=== PATIENT | female | born 1995 | race Caucasian/White ===

== ENCOUNTER → 2022-05-11 17:02 | Outpatient (CLI) | payer OTHER, SELFPAY ==
--- NOTE | 2022-05-11 17:06 | DI.US.S_ITS ---
PROCEDURE: US OB <= 14 WEEKS FETUS INDICATIONS: DATING AND VIABILITY OUTSIDE/PRIOR DATING DATA: Last menstrual period (LMP): 03/11/2022. LMP-based estimated date of delivery (KAILASH): 12/16/2022. First dating scan (date and location): 05/11/2022. Estimated date of delivery (KAILASH) from first dating scan: < 12/29/2022. TECHNIQUE: Real-time scanning was performed of the fetus and maternal pelvic organs, with image documentation. Endovaginal scanning was also performed to better visualize the fetus and maternal ovaries. COMPARISON: None. FINDINGS: Embryo: There is a single intrauterine with a gestational sac, yolk sac, and pole demonstrated. The crown-rump length measures up to 0.8 cm corresponding to a calculated gestational age of 6 weeks 5 days and estimated delivery date of 12/29/2022. There is heart motion with a rate of 122 beats per minute. Maternal organs: The ovaries appear within normal size limits. No adnexal masses identified. IMPRESSION: 1. Single living intrauterine with calculated gestational age of 6 weeks 5 days corresponding to an estimated delivery date of 12/29/2022. We strive to produce accurate, complete, and clear reports of imaging services. To assist us in improving patient care, this report was composed using standard report templates and voice recognition software. Therefore, it may contain abnormal punctuation, insertions and/or omissions. Occasional wrong-word or sound-alike substitutions may occur. Though we review the report and make efforts to correct it, we do recommend that the report be read carefully in proper context to recognize any text inaccuracies. Dictated by: Tong Granados M.D. on 05/11/2022 at 20:47 Approved by: Tong Granados M.D. on 05/11/2022 at 20:52
== END ==
PROVIDERS: Family Provider Family Medicine; PCP Family Medicine; Referring Provider Family Medicine; Visit Provider Family Medicine
DX: Z36.87 Encounter for antenatal screening for uncertain dates (principal); Z3A.01 Less than 8 weeks gestation of pregnancy
CPT/HCPCS: 76801

== ENCOUNTER → 2022-06-19 15:28 | Outpatient (CLI) | payer OTHER, SELFPAY ==
[2022-06-19 17:03] LABS: Specimen Label NATERA
[2022-06-19 17:40] LABS: Add Manual Diff / Slide Review NO; Basophils Absolute Auto 0 /uL (0-100); Basophils Percent Auto 0.3 % (0-2); Eosinophils Absolute Auto 200 /uL (0-450); Hematocrit 36.9 % (36-46); Hemoglobin 12.8 g/dL (12.0-16.0); Lymphocytes Absolute Auto 2200 /uL (1100-4500); Lymphocytes Percent Auto 20.6 % (25-40); Mean Corpuscular HGB Conc 34.6 % (30-36); Mean Corpuscular Hemoglobin 32.1 PG (26-34); Mean Corpuscular Volume 92.6 fL (80-100); Monocytes Absolute Auto 400 /uL (0-900); Monocytes Percent Auto 3.7 % (3-14); Neutrophils Absolute Auto 8000 /uL (1500-7000); Neutrophils Percent Auto 73.4 % (50-75); Platelet Count 188 X10^3/uL (150-400); Red Blood Cell Count 3.99 X10^6/uL (4.0-5.2); Red Cell Distribution Width 12.8 % (11.6-14.8); White Blood Cell Count 10.9 X10^3/uL (4.5-11.0)
[2022-06-21 04:09] LABS: RPR Screen Non Reactive (Non Reactive)
[2022-06-21 11:27] LABS: Varicella IgG Antibody 193 index (Immune >165)
[2022-06-21 16:23] LABS: Hepatitis B Surface Antigen NEGATIVE s/c (NEGATIVE); Rubella Antibody IgG 42.4 IU/mL (>15)
[2022-06-21 16:41] LABS: HIV 1 & 2 Ab/Ag 4th Gen Combo NEGATIVE (NEGATIVE); Hep C Virus Ab w/Reflex Quant NEGATIVE s/c (NEGATIVE)
== END ==
PROVIDERS: Family Provider Family Medicine; PCP Family Medicine; Referring Provider Obstetrics & Gynecology; Visit Provider Obstetrics & Gynecology
DX: Z34.81 Encounter for supervision of other normal pregnancy, first trimester (principal)
CPT/HCPCS: 36415; 80055; 86787; 86803; 86850; 86900; 86901; 87086; 87389

== ENCOUNTER → 2022-07-16 11:33 | Outpatient (CLI) | payer OTHER, SELFPAY ==
[2022-07-19 19:07] LABS: AFP Value 47.3 ng/mL (.); Gest Age on Col Date 16.1 weeks (.); Insulin Dep Diabetes No (.); OSBR Risk 1IN 3704 (.); Results Report (.); Test Results *Screen Negative* (.)
== END ==
PROVIDERS: Family Provider Family Medicine; PCP Family Medicine; Referring Provider Physician Assistant Medical; Visit Provider Physician Assistant Medical
DX: Z34.02 Encounter for supervision of normal first pregnancy, second trimester (principal); Z3A.16 16 weeks gestation of pregnancy
CPT/HCPCS: 36415; 82105

== ENCOUNTER → 2022-08-15 14:16 | Outpatient (CLI) | payer OTHER, SELFPAY ==
--- NOTE | 2022-08-15 14:17 | DI.US.S_ITS ---
PROCEDURE: US OB >= 14 WEEKS FETUS INDICATIONS: anatomy scan OUTSIDE/PRIOR DATING DATA: Last menstrual period (LMP): 03/11/2022. LMP-based estimated date of delivery (KAILASH): 12/16/2022. First dating scan (date and location): 05/11/2022. Estimated date of delivery (KAILASH) from first dating scan: 12/29/2022. TECHNIQUE: Real-time scanning was performed of the fetus, with image documentation and biometric measurements. Endovaginal scanning: Not performed COMPARISON: [facility], OB <= 14 WEEKS FETUS, 05/11/2022, 17:33. [facility], , US OB <= 14 WEEKS FETUS, 06/19/2022, 12:23. FINDINGS: General: A single living intrauterine gestation is present. Presentation: Cephalic. Placenta: Placental position is posterior , without previa. Amniotic fluid index: 14.4 cm, normal range is 5-24 cm. Single deepest vertical pocket is 4.8 cm. heart rate: 133 beats per minute. Maternal cervical canal: 5.4 cm long. Normal lower limit is 2.5 cm. biometrics: Biparietal diameter: 4.6 cm 20 weeks 0 days Head circumference: 17.2 cm 19 weeks 6 days Abdominal circumference: 14.5 cm 19 weeks 6 days Femur length: 3.1 cm 19 weeks 4 days estimated gestational age: 20 weeks 4 days Composite gestational age from present scan: 19 weeks 6 days Estimated weight and percentile: 311 g, 11th percentile Anatomic survey: Neuro: Ventricles are non-dilated at less than 10 mm. Cisterna magna is normal at 3-11 mm. Cerebellum is normal in size and morphology. Nuchal skin fold: No thickening identified Face: Nose and lips, facial profile are normal. Spine: No evidence for spina bifida. Heart: 4-chambered heart is present, with normal ventricular outflow tracts. Diaphragm: Diaphragm is intact. Stomach: Left-sided stomach is present. Kidneys: No hydronephrosis. Normal is less than 5 mm in 2nd trimester, less than 7 mm in 3rd trimester. Cord: 3-vessel cord has orthotopic insertion. Bladder: Normal in size. Extremities: All 4 extremities identified. IMPRESSION: 1. Single living intrauterine . 2. Estimated weight at the 11th percentile. 3. Normal 2nd trimester anatomy survey. No anatomic anomalies detected at this time. We strive to produce accurate, complete, and clear reports of imaging services. To assist us in improving patient care, this report was composed using standard report templates and voice recognition software. Therefore, it may contain abnormal punctuation, insertions and/or omissions. Occasional wrong-word or sound-alike substitutions may occur. Though we review the report and make efforts to correct it, we do recommend that the report be read carefully in proper context to recognize any text inaccuracies. Dictated by: Froylan Rahman M.D. on 08/15/2022 at 16:30 Approved by: Froylan Rahman M.D. on 08/15/2022 at 16:39
== END ==
PROVIDERS: Family Provider Family Medicine; PCP Family Medicine; Referring Provider Obstetrics & Gynecology; Visit Provider Obstetrics & Gynecology
DX: Z34.02 Encounter for supervision of normal first pregnancy, second trimester (principal); Z3A.19 19 weeks gestation of pregnancy
CPT/HCPCS: 76811

== ENCOUNTER → 2022-09-27 11:10 | Outpatient (CLI) | payer OTHER, SELFPAY ==
[2022-09-27 12:34] LABS: Hematocrit 35.2 % (36-46); Hemoglobin 12.3 g/dL (12.0-16.0)
[2022-09-27 12:46] LABS: GTT (PREG) 1 Hour PP 50gm Dose 106 mg/dL (76-139)
== END ==
PROVIDERS: Family Provider Family Medicine; PCP Family Medicine; Referring Provider Obstetrics & Gynecology; Visit Provider Obstetrics & Gynecology
DX: Z34.02 Encounter for supervision of normal first pregnancy, second trimester (principal); Z3A.26 26 weeks gestation of pregnancy
CPT/HCPCS: 36415; 82950; 85014; 85018

== ENCOUNTER 2022-12-01 13:01 | Inpatient (IN) | payer OTHER, SELFPAY ==
[2022-12-01 14:04] LABS: Add Manual Diff / Slide Review NO; Basophils Absolute Auto 0 /uL (0-100); Eosinophils Absolute Auto 200 /uL (0-450); Eosinophils Percent Auto 1.1 % (2-4); Hemoglobin 12.9 g/dL (12.0-16.0); Lymphocytes Absolute Auto 1300 /uL (1100-4500); Lymphocytes Percent Auto 7.7 % (25-40); Mean Corpuscular HGB Conc 34.8 % (30-36); Mean Corpuscular Hemoglobin 32.8 PG (26-34); Mean Corpuscular Volume 94.2 fL (80-100); Monocytes Absolute Auto 700 /uL (0-900); Neutrophils Absolute Auto 15300 /uL (1500-7000); Neutrophils Percent Auto 87.2 % (50-75); Platelet Count 180 X10^3/uL (150-400); Red Blood Cell Count 3.93 X10^6/uL (4.0-5.2); Red Cell Distribution Width 13.3 % (11.6-14.8); White Blood Cell Count 17.6 X10^3/uL (4.5-11.0)
[2022-12-01] MEDS: ONDANSETRON 4 MG/2 ML INJ IV (14:31)
[2022-12-01] MEDS: LACTATED RINGERS 1,000 ML 100 ML IV (15:00)
[2022-12-01 15:03] LABS: Strep Grp B PCR NEG for Grp B Strep
--- NOTE | 2022-12-01 17:18 | PM.OBHP.IH.1 ---
OB HPI Date/Time Date of admission: 12/02/22 Date Patient Seen: 12/02/22 Time Patient Seen: 15:20 History of Present Condition Chief complaint: NST KAILASH Calculator Estimated Delivery Date Method Current WG Current Estimate 12/30/22 Ultrasound #1 35w 6d Other Estimates 12/16/22 LMP (Certain) 37w 6d 12/31/22 Ultrasound #2 35w 5d Estimated Gestational Age (weeks): 35+6 : 1 Para: 0 care: good care, initiated at week # (12), number of visits (7) and pounds weight gain (65) Dating criteria OB: LMP confirmed by 1st trimester US Ultrasounds: normal 1st trimester US and normal mid trimester US Obstetrical complications: none Medical complications OB: none Preadmission Labs Last OB Lab Results: Blood Type A Positive 12/01/22 13:35 Antibody Screen Negative 12/01/22 13:35 Hematocrit 37.0 % (36-46) 12/01/22 13:35 Hemoglobin 12.9 g/dL (12.0-16.0) 12/01/22 13:35 Hepatitis B Surface Antigen Negative s/c (NEGATIVE) 06/19/22 16:21 Hepatitis C Antibody Negative s/c (NEGATIVE) 06/19/22 16:21 Rubella Antibody 42.4 IU/mL (>15) 06/19/22 16:21 Varicella-Zoster IgG Antibody 193 index (Immune >165) 06/19/22 16:21 Glucose 1 Hour 106 mg/dL (76-139) 09/27/22 12:18 Group B Streptococcus (PCR) Neg for grp b strep 12/01/22 13:30 -: Chlamydia screen: negative, Gonorrhea screen: negative and Urine: negative -: PAP smear: Normal Genetic Screens: Cell-free DNA: Normal (normal male) and Alpha-fetoprotein: Normal External Labs -: Urine: negative Evaluation Evaluation Baseline heart rate: 120 Variability: Moderate (11-25) monitor accelerations: Present Monitor Decelerations: Early Contraction Frequency (minutes): 3 Uterine Contraction Intensity: Strong/Firm Status: Category l Dilation (cm): 10 Effacement (%): 100 station: +2 Position of cervix: anterior [facility] Medical History (Updated 11/14/22 @ 14:54 by Cami Arriola DO) Acne Allergies Depression (~2014) Irregular menstrual cycle (~2014) Rosacea 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 Thoracic region somatic dysfunction Surgical History History of third molar tooth extraction Family History (Updated 06/20/22 @ 21:09 by Gabi Goyal) Granddaughter Diabetes mellitus Father Family estrangement Family/Other Diabetes mellitus Grandfather Hyperlipidemia Hypertension Mother History of cholecystectomy Family/Other Sepsis Heart valve disease Grandmother Diabetes mellitus Social History marital status: household members: spouse lives independently: Yes caregiver/support person: No housing: house pets and animals: Yes (2 dogs) education level: college occupational status: employed current occupational exposures/hazards: No special niko needs: No travel history: over 6 months ago seatbelt use: always water heater temp set < 120 deg: Yes working smoke detector in home: Yes fire extinguisher in home: Yes carbon monox detector in home: Yes firearms in home: Yes firearms unloaded and locked: Yes do you feel safe at home: Yes Smoking Status: Never smoker second hand exposure: No alcohol intake: never substance use type: does not use during the past year weight has: increased > 10 lbs well-balanced diet: daily or most days daily servings fruits/ve or more times/day caffeine: Yes (very little since learning of , aware of 200mg limit) Type(s) of exercise: walking Meds Home Medications and Allergies Home Medications Medication Instructions Recorded Confirmed Type permethrin 5 % topical cream 1 applic topical ONCE rash #60 02/16/21 11/27/22 Rx grams choline 250 mg tablet mg PO 05/31/22 11/27/22 History docosahexaenoic acid 200 mg mg PO 05/31/22 11/27/22 History capsule ( DHA) prenat.vits,cholo,[id number] 1 tab PO DAILY 05/31/22 11/27/22 History Double Electric Breast Pump #1 ea 11/27/22 11/27/22 Rx Allergies Allergy/AdvReac Type Severity Reaction Status Date / Time apple Allergy Severe Swelling Verified 11/27/22 10:29 of Lip/Tongue/Throat wheat AdvReac Mild Verified 11/27/22 10:29 dairy AdvReac Mild Uncoded 11/27/22 10:29 OB Exam Narrative Exam Narrative: Generally: Patient working through contractions, no acute distress Fundal height: 37 cm Estimated weight: 6 lb Extremities: Trace edema Objective Labs 12/01/22 13:35 Labs: Laboratory Results - last 24 hr 12/01/22 12/01/22 12/01/22 13:30 13:35 13:35 WBC 17.6 H RBC 3.93 L Hgb 12.9 Hct 37.0 MCV 94.2 MCH 32.8 MCHC 34.8 RDW 13.3 Plt Count 180 Neut % (Auto) 87.2 H Lymph % (Auto) 7.7 L [place] % (Auto) 4.0 Eos % (Auto) 1.1 L Baso % (Auto) 0.0 Neut # (Auto) 69024 H Lymph # (Auto) 1300 [place] # (Auto) 700 Eos # (Auto) 200 Baso # (Auto) 0 Group B Strep (PCR) Neg for grp b strep Blood Type A Positive Antibody Screen Negative Assessment and Plan Assessment and Plan Assessment and Plan narrative: Assessment: 27-year-old 1 para 0 at 35-,6/7 weeks gestation in active labor, entering second stage GBS negative Plan: Expectant management to spontaneous vaginal delivery Time Spent with Patient Total time spent with greater than 50% in coordination of care (as documented) at patient's floor/unit and/or counseling patient:: Greater than 35 minutes
--- NOTE | 2022-12-01 17:26 | PM.OBPRVD ---
Events: Labor < 37 wks Labor & Delivery Delivery date: 12/01/22 Cervical ripening method: none Induction method: none Delivery monitor: external FHT and external uterine Route of delivery: Episiotomy description: None L&D Laceration Description: Perineal - 2nd Degree and Vaginal - 2nd Degree Quantitative Blood Loss: 100 Anesthesia Type: Local (for repair) and None Complications: None Narrative: Patient complete and pushed for 25 minutes. At 3:49 p.m., a live male infant delivered spontaneously in the THOMAS presentation, over an intact perineum. No nuchal cord. The remainder of the body delivered without difficulty and was placed on mom's abdomen. There was a short umbilical cord. The cord was double clamped and cut after it stopped pulsing. Cord bloods were obtained. Pitocin was given in the IV fluids. The placenta delivered intact with a three-vessel cord at 3:59 p.m.. Fundus was massaged to firm. The perineum and vagina were inspected and there was a second-degree vaginal/perineal laceration. This was repaired in the usual fashion with 2-0 vicryl and 2-0 chromic. Hemostasis was achieved. . Local for repair. Mom and infant stable to recovery. Baby 1: gender: Male Presentation: vertex Position: Left Occiput Anterior Placenta delivery description: Spontaneous Cord Vessel Description: 3 Vessels and Clamped/Cut (After cord stopped pulsing) score (1 min): 9 score (5 min): 9 weight: 5 lb 15 oz Plan for aftercare: Routine care
[2022-12-01] MEDS: ACETAMINOPHEN 325 MG TABLET 650 MG PO (20:00)
[2022-12-01] MEDS: IBUPROFEN 600 MG TABLET PO (22:13)
[2022-12-02] MEDS: ACETAMINOPHEN 325 MG TABLET 650 MG PO ×3 (02:58→19:51)
[2022-12-02 06:31] LABS: Hematocrit 31.4 % (36-46)
[2022-12-02] MEDS: IBUPROFEN 600 MG TABLET PO ×3 (06:57→19:50)
[2022-12-02] MEDS: DOCUSATE 100 MG CAPSULE PO (09:48)
[2022-12-02] MEDS: PRENATAL VIT,CALC/IRON/FOLIC 1 TABLET 1 TAB PO (09:48)
[2022-12-03] MEDS: ACETAMINOPHEN 325 MG TABLET 650 MG PO ×3 (01:35→14:53)
[2022-12-03] MEDS: IBUPROFEN 600 MG TABLET PO ×3 (01:42→14:52)
--- NOTE | 2022-12-03 07:20 | P.PNOB_ITS ---
Subjective - OB Subjective Patient comments: no complaints [place] baby status: doing well feeding status: breast and bottle feeding Date Patient Seen: 12/02/22 Time Patient Seen: 12:00 Interval history: day # 1 status post spontaneous vaginal delivery at 35-,6/7 weeks gestation. Breast and SNS feeding. Bleeding is tapering. Cramping occasionally. Exam Narrative Exam Narrative: Generally: Patient is sitting up in bed, no acute distress Fundus: Firm at U -2 Extremities: Trace edema, negative Homans Objective Labs 12/02/22 06:22 Assessment & Plan Plan day: 1 plan OB: routine care Comments: consultation tomorrow morning Anticipate discharge December 03, 2022 Time Spent With Patient Time: Total time spent is greater than 50% in coordination of care (as documented) at patient's floor/unit and/or counseling patient: Time with patient: 15-24 minutes
[2022-12-03] MEDS: PRENATAL VIT,CALC/IRON/FOLIC 1 TABLET 1 TAB PO (08:19)
[2022-12-03] MEDS: DOCUSATE 100 MG CAPSULE PO (08:19)
[2022-12-03 16:22] VITALS: BP 125/73; PULSE 70; RESP 14; TEMP 36.7
--- NOTE | 2022-12-09 16:38 | PM.OBDS.1 ---
Discharge Providers Provider Date of admission: 12/01/22 13:01 Discharge Date: 12/03/22 Primary care physician: Cami Arriola DO Consults: 12/01/22 13:33 Consult to Anesthesiology Urgent Comment: Consulting Provider: Ninoska Simmons Reason for consultation: Epidural 12/02/22 17:00 Consult to Director Of Professional Services Routine Comment: Discharge provider: Ninoska Simmons MD Summary Hospital Course Date Patient Seen: 12/03/22 Time Patient Seen: 09:30 Diagnoses: 35-,6/7 weeks gestation labor delivery Spontaneous vaginal delivery Hospital Course: Patient is a 27-year-old 1 para 1 who presented on December 01, 2022 in labor at 35-,6/7 weeks gestation. She progressed quickly in active labor and had a spontaneous vaginal delivery of a male weighing 5 lb 15 oz. Apgars were 9 at 1 minute and 9 at 5 minutes. Her course was unremarkable. She was discharged home on December 03, 2022. Baby was feeding well. She had received consultation. Her bleeding was tapering. Peripartum Data Infant Delivery Method: Natural Vaginal Laceration Description: Perineal - 2nd Degree and Vaginal - 2nd Degree Episiotomy description: None Procedures: Spontaneous vaginal delivery Vaginal/perineal second-degree laceration repair complications: none 1: Gender: Male Status at Discharge Cognitive/behavioral status at discharge: oriented Functional status at discharge: independent ambulation Overall status at discharge: patient is progressing back to baseline Time Spent with Patient Time attestation: Total time spent providing and/or coordinating discharge services: Time spent: Less than 30 minutes Objective Labs 12/02/22 06:22 Exam Narrative Exam Narrative: Generally: Patient is sitting up in bed, holding infant, no acute distress Fundus: Firm at U -1 Extremities: Trace edema, negative Homans Discharge Plan Discharge Plan Patient Disposition: Home Provider Discharge Comment: Call with fever, chills, or bleeding vaginally more than a pad in an hour Ibuprofen 600 mg every 6 hours as needed for cramping Tylenol 650 mg every 6 hours as needed Push oral fluids Elevate legs Discharge orders & Medications Prescriptions: Continued prenat.vits,cholo,[id number] Tablet 1 tab PO DAILY DHA 200 mg capsule See Rx Instructions .ROUTE .COMPLEX Rx Instructions: per Md order choline 250 mg tablet 250 mg PO Rx Instructions: Per MD order Discontinued permethrin 5 % cream 1 applic topical ONCE Qty: 60 0RF Rx Instructions: leave on for 8 to14 hrs before washing off No Action (DME) Double Electric Breast Pump See Rx Instructions .Route .MEDSUPPLY Qty: 1 0RF Rx Instructions: Pump and supplies Follow up/Referrals: Ninoska Simmons MD [Physician] - 01/14/23 3:15 pm Diet/Activity/Treatments Diet: Regular Activity: Nothing in the vagina for 6 weeks Skin/Wound/Dressing Care Report to your healthcare provider any signs of infection, such as:: chills, fever, increased pain and unusual drainage Visit Report/Discharge Packet Instructions: DI for Labor and Delivery, Vaginal Stand Alone Forms: Discharge: Care, Patient Portal/API, Stroke Signs & Symptoms Discharge Data Primary Care Provider: Cami Arriola Discharges patient from system. Discharge Date/Time: 12/03/22 18:40
== END 2022-12-03 18:40 | disposition home or self-care (01) | DRG 807 ==
PROVIDERS: Admitting Provider Obstetrics & Gynecology; Family Provider Family Medicine; PCP Family Medicine; Referring Provider Obstetrics & Gynecology; Visit Provider Obstetrics & Gynecology
DX: O60.14X0 Preterm labor third trimester with preterm delivery third trimester, not applicable or unspecified (principal); Z37.0 Single live birth; Z3A.35 35 weeks gestation of pregnancy; O70.1 Second degree perineal laceration during delivery
CPT/HCPCS: 36415; 59025; 59050; 59400; 84112; 85014; 85018; 85025; 86850; 86900; 86901; 87081; 87653; G0379; J2405

== ENCOUNTER → 2023-06-14 11:24 | Outpatient (CLI) | payer OTHER, SELFPAY ==
--- NOTE | 2023-06-14 11:57 | DI.RAD.S_ITS ---
PROCEDURE: XR FOOT RT 2V INDICATIONS: bilateral heel pain TECHNIQUE: 2 views of the foot were acquired. COMPARISON: None. FINDINGS: Bones: No fractures or dislocations. No suspicious bony lesions. Plantar calcaneal enthesophyte. Soft tissues: No tibiotalar joint effusion. Achilles tendon appears normal. IMPRESSION: Mild calcaneal enthesopathy; otherwise no definite radiographic abnormality. If pain persists with conservative management, consider repeat plain films or cross sectional imaging such as CT or MRI for further assessment. Dictated by: Azael Key [facility] Interpreted: Jackson Ellis MD on 06/14/2023 at 14:07 Transcribed by: JOANNE on 06/14/2023 at 14:19 Approved by: Jackson Ellis M.D. on 06/17/2023 at 10:12
--- NOTE | 2023-06-14 11:57 | DI.RAD.S_ITS ---
PROCEDURE: XR FOOT LT 2V INDICATIONS: bilateral heel pain TECHNIQUE: 2 views of the foot were acquired. COMPARISON: Located [facility], CR, XR FOOT RT 2V, 06/14/2023, 11:57. FINDINGS: Bones: No fractures or dislocations. No suspicious bony lesions. Plantar calcaneal enthesophyte. Soft tissues: No tibiotalar joint effusion. Achilles tendon appears normal. IMPRESSION: Mild calcaneal enthesopathy; otherwise no definite radiographic abnormality. If pain persists with conservative management, consider repeat plain films or cross sectional imaging such as CT or MRI for further assessment. Dictated by: Azael Key [facility] Interpreted: Jackson Ellis MD on 06/14/2023 at 14:19 Transcribed by: JOANNE on 06/14/2023 at 14:19 Approved by: Jackson Ellis M.D. on 06/17/2023 at 10:12
== END ==
LOC: RAD 11:54
PROVIDERS: Family Provider Family Medicine; PCP Family Medicine; Referring Provider Family Medicine; Visit Provider Family Medicine
DX: M77.32 Calcaneal spur, left foot (principal); M77.31 Calcaneal spur, right foot; M79.672 Pain in left foot; M79.671 Pain in right foot
CPT/HCPCS: 73620

== ENCOUNTER → 2025-04-12 14:54 | Outpatient (CLI) | payer BC, SELFPAY ==
[2025-04-12 15:58] LABS: Add Manual Diff / Slide Review NO; Hematocrit 37.1 % (36-46); Hemoglobin 13.1 g/dL (12.0-16.0); Lymphocytes Absolute Auto 2200 /uL (1100-4500); Mean Corpuscular HGB Conc 35.2 % (30-36); Mean Corpuscular Hemoglobin 31.3 PG (26-34); Mean Corpuscular Volume 89.0 fL (80-100); Platelet Count 197 X10^3/uL (150-400)
[2025-04-12 15:59] LABS: Natera Collection Specimen Collected
[2025-04-12 16:40] LABS: Appearance Urine UA CLEAR; Bilirubin Urine UA NEGATIVE (NEGATIVE); Color Urine UA YELLOW; Glucose Urine UA NEGATIVE (Negative); Ketones Urine UA NEGATIVE (NEGATIVE); Leukocyte Esterase Urine UA NEGATIVE (NEGATIVE); Nitrite Urine UA NEGATIVE (Negative); Occult Blood Urine UA NEGATIVE (Negative); Protein Urine UA NEGATIVE (Negative); Specific Gravity Urine UA <=1.005 (1.000-1.035); Urobilinogen Urine UA 0.2 E.U./dL (0.2)
[2025-04-12 16:51] LABS: pH Urine UA 5.5 (4.5-8.0)
[2025-04-13 17:06] LABS: Hepatitis B Surface Antigen NEGATIVE s/c (NEGATIVE)
[2025-04-13 17:28] LABS: HIV 1 & 2 Ab/Ag 4th Gen Combo NEGATIVE (NEGATIVE); Hep C Virus Ab w/Reflex Quant NEGATIVE s/c (NEGATIVE)
== END ==
PROVIDERS: PCP Family Medicine; Referring Provider Family Medicine; Visit Provider Family Medicine
DX: Z34.80 Encounter for supervision of other normal pregnancy, unspecified trimester (principal)
CPT/HCPCS: 36415; 80055; 81003; 86787; 86803; 86850; 86900; 86901; 87086; 87389